=== PATIENT | female | born 1960 | race Caucasian/White ===

== ENCOUNTER 2021-05-08 02:07 | Inpatient (IN) | payer OTHER ==
[2021-05-08] MEDS ORDERED: methylPREDNISolone Sod Succ/PF 125 MG/2 ML VIAL ONE (02:34)
[2021-05-08 03:04] LABS: #Eosinphils 0.1 10x3/uL (0.0-0.5); #Monocytes 0.5 10x3/uL (0.0-1.1); #Neutrophils 4.9 10x3/uL (1.5-8.4); %Basophils 0.2 % (0.0-2.0); %Lymphocytes 16.1 % (18.0-47.0); %Monocytes 7.5 % (0.0-10.0); %Neutrophils 73.9 % (40.0-75.0); Hemoglobin 15.1 g/dL (12.0-15.5); Mean Corpuscular HGB CONC 35.3 g/dL (32.0-36.0); Mean Corpuscular Hemoglobin 30.9 pg (27.0-33.0); Mean Corpuscular Volume 87.5 fl (81.6-98.3); Mean Platelet Volume 11.1 fl (7.4-10.4); Platelet Count 164 10x3/uL (150-450); RBC Distribution Width 12.3 % (11.5-14.5); Red Blood Cell (RBC) Count 4.89 10x6/uL (3.90-5.03); White Blood Cell (WBC) Count 6.7 10x3/uL (3.5-10.5)
[2021-05-08 03:23] LABS: ALT (SGPT) 12 U/L (8-55); AST (SGOT) 18 U/L (5-34); Albumin 4.1 g/dL (3.4-4.8); Alkaline Phosphatase 62 U/L (40-110); Anion Gap 14 mmol/L (10-20); BUN (Urea Nitrogen) 11 mg/dL (9.8-20.1); Bilirubin, Total 0.8 mg/dL (0.2-1.2); Calc. Creatinine Clearance 0 mL/min (70-130); Calcium 9.9 mg/dL (7.8-10.44); Carbon Dioxide 27 mmol/L (23-31); Chloride 103 mmol/L (98-107); Globulin 3.1 g/dL (2.4-3.5); Glucose 111 mg/dL (80-115); Lipase 27 U/L (8-78); Potassium 3.6 mmol/L (3.5-5.1); Protein, Total 7.2 g/dL (5.8-8.1); Sodium 140 mmol/L (136-145)
[2021-05-08 03:33] LABS: Bilirubin Neg (Negative); Blood, Urine 25 (Negative); Glucose, Urine (Dipstick) Normal (Negative); Ketone, Urine 5 mg/dL (Negative); Leukocyte 25 (Negative); Nitrite Negative (Negative); Protein, Urine (Dipstick) Negative (Neg-Trace)
[2021-05-08 03:46] LABS: Clarity Clear (Clear)
[2021-05-08 03:48] LABS: RBC/HPF 0-3 HPF (0-3)
[2021-05-08 03:49] LABS: Bacteria/HPF None Seen HPF (None Seen)
[2021-05-08 03:55] LABS: SARS-CoV-2 NAA Rapid Test Not Detected (NotDetected)
[2021-05-08] MEDS ORDERED: Calcium Carbonate 500 MG ChewTAB PO PRN (06:05)
[2021-05-08] MEDS ORDERED: Ondansetron PF 4 MG/2 ML Vial IVP PRN (06:05)
[2021-05-08] MEDS ORDERED: Mometasone 100 MCG/Formoterol 5 MCG 120 PUFF INHALER INH SCH ×2 (06:30→18:30)
[2021-05-08] MEDS ORDERED: Hydrochlorothiazide 25 MG TAB PO SCH (09:45)
[2021-05-08] MEDS ORDERED: Potassium Chloride 20 MEQ TAB PO SCH (09:45)
[2021-05-08] MEDS ORDERED: Potassium Chloride 20 MEQ TAB ONE (10:03)
[2021-05-08] MEDS ORDERED: Mometasone/Formoterol 60 PUFF AER INH ONE (10:04)
[2021-05-08] MEDS ORDERED: methylPREDNISolone Sod Succ 40 MG VIAL ONE ×2 (10:04)
[2021-05-08] MEDS ORDERED: Enoxaparin Sodium 40 MG/0.4 ML SYRINGE ONE (10:09)
[2021-05-08] MEDS: Enoxaparin Sodium 40 MG/0.4 ML SYRINGE SC SCH (10:36)
[2021-05-08 10:38] LABS: Legionella Urinary Ag Negative (Negative); Strep pneumo Urine Ag NEGATIVE (NEGATIVE)
[2021-05-08] MEDS: methylPREDNISolone Sod Succ/PF 125 MG/2 ML VIAL IVP SCH ×2 (12:29→20:38)
[2021-05-08] MEDS: Guaifenesin DM 100-10/5 ML UDCUP PO PRN (16:22)
[2021-05-08 17:22] VITALS: BMI 25.2
[2021-05-08] MEDS: Montelukast Sodium 10 mg Tablet PO SCH (20:38)
[2021-05-08] MEDS: Mometasone/Formoterol 60 PUFF AER INH SCH (20:43)
[2021-05-08] MEDS: Zolpidem Tartrate 5 MG TAB PO PRN (21:22)
[2021-05-09] MEDS: methylPREDNISolone Sod Succ/PF 125 MG/2 ML VIAL IVP SCH ×5 (00:14→23:42)
[2021-05-09] MEDS: Mometasone/Formoterol 60 PUFF AER INH SCH ×2 (05:39→19:30)
[2021-05-09 06:14] LABS: Anion Gap 13 mmol/L (10-20); BUN (Urea Nitrogen) 9 mg/dL (9.8-20.1); Calc. Creatinine Clearance 67 mL/min (70-130); Calcium 10.5 mg/dL (7.8-10.44); Carbon Dioxide 28 mmol/L (23-31); Chloride 102 mmol/L (98-107); Glucose 156 mg/dL (80-115); Potassium 3.6 mmol/L (3.5-5.1); Sodium 139 mmol/L (136-145)
[2021-05-09] MEDS: Enoxaparin Sodium 40 MG/0.4 ML SYRINGE SC SCH (09:54)
[2021-05-09] MEDS: Hydrochlorothiazide 25 MG TAB PO SCH (09:55)
[2021-05-09 13:33] LABS: ANA Symphony (Qualitative) Negative (Negative); ANA Symphony (Quantitative) Less than 0.1 Ratio (< 0.7 Negative); dsDNA IgG Antibody 2.3 IU/mL (<10 Negative)
[2021-05-09] MEDS ORDERED: Loratadine 10 MG TAB PO SCH (14:00)
[2021-05-09] MEDS: Montelukast Sodium 10 mg Tablet PO SCH (20:14)
[2021-05-09] MEDS: Zolpidem Tartrate 5 MG TAB PO PRN (22:34)
[2021-05-10 06:09] LABS: #Monocytes 0.2 10x3/uL (0.0-1.1); #Neutrophils 12.6 10x3/uL (1.5-8.4); %Basophils 0.1 % (0.0-2.0); %Lymphocytes 4.7 % (18.0-47.0); %Monocytes 1.5 % (0.0-10.0); Hemoglobin 14.5 g/dL (12.0-15.5); Mean Corpuscular HGB CONC 34.5 g/dL (32.0-36.0); Mean Corpuscular Hemoglobin 30.7 pg (27.0-33.0); Mean Corpuscular Volume 88.8 fl (81.6-98.3); Mean Platelet Volume 11.3 fl (7.4-10.4); Platelet Count 169 10x3/uL (150-450); RBC Distribution Width 12.2 % (11.5-14.5); Red Blood Cell (RBC) Count 4.73 10x6/uL (3.90-5.03); White Blood Cell (WBC) Count 13.6 10x3/uL (3.5-10.5)
[2021-05-10 06:13] LABS: Anion Gap 13 mmol/L (10-20); BUN (Urea Nitrogen) 15 mg/dL (9.8-20.1); Calc. Creatinine Clearance 69 mL/min (70-130); Calcium 10.2 mg/dL (7.8-10.44); Carbon Dioxide 28 mmol/L (23-31); Chloride 103 mmol/L (98-107); Glucose 145 mg/dL (80-115); Potassium 3.8 mmol/L (3.5-5.1); Sodium 140 mmol/L (136-145)
[2021-05-10] MEDS: methylPREDNISolone Sod Succ/PF 125 MG/2 ML VIAL IVP SCH ×4 (06:16→18:20)
[2021-05-10] MEDS: Mometasone/Formoterol 60 PUFF AER INH SCH ×2 (09:47→19:48)
[2021-05-10] MEDS: Enoxaparin Sodium 40 MG/0.4 ML SYRINGE SC SCH (09:49)
[2021-05-10] MEDS: Senokot S 8.6-50 MG TAB PO PRN (09:50)
[2021-05-10] MEDS: Hydrochlorothiazide 25 MG TAB PO SCH (09:50)
[2021-05-10] MEDS: Loratadine 10 MG TAB PO SCH (09:51)
[2021-05-10] MEDS ORDERED: Lorazepam 0.5 MG TAB PO PRN (12:53)
[2021-05-10] MEDS: Acetaminophen 325 MG TAB PO PRN (18:44)
[2021-05-10] MEDS: Montelukast Sodium 10 mg Tablet PO SCH (21:21)
[2021-05-11] MEDS: methylPREDNISolone Sod Succ/PF 125 MG/2 ML VIAL IVP SCH ×4 (00:31→16:44)
[2021-05-11 04:56] LABS: Anion Gap 14 mmol/L (10-20); BUN (Urea Nitrogen) 20 mg/dL (9.8-20.1); Calc. Creatinine Clearance 68 mL/min (70-130); Carbon Dioxide 29 mmol/L (23-31); Chloride 103 mmol/L (98-107); Glucose 153 mg/dL (80-115); Potassium 3.9 mmol/L (3.5-5.1); Sodium 142 mmol/L (136-145)
[2021-05-11 05:06] LABS: #Monocytes 0.2 10x3/uL (0.0-1.1); #Neutrophils 10.9 10x3/uL (1.5-8.4); %Basophils 0.2 % (0.0-2.0); Mean Corpuscular HGB CONC 34.1 g/dL (32.0-36.0); Mean Corpuscular Hemoglobin 30.6 pg (27.0-33.0); Mean Corpuscular Volume 89.9 fl (81.6-98.3); Mean Platelet Volume 11.6 fl (7.4-10.4); Platelet Count 164 10x3/uL (150-450); RBC Distribution Width 12.2 % (11.5-14.5); Red Blood Cell (RBC) Count 4.57 10x6/uL (3.90-5.03)
[2021-05-11] MEDS: Mometasone/Formoterol 60 PUFF AER INH SCH ×2 (08:15→19:25)
[2021-05-11] MEDS: Senokot S 8.6-50 MG TAB PO PRN (09:09)
[2021-05-11] MEDS: Enoxaparin Sodium 40 MG/0.4 ML SYRINGE SC SCH (09:09)
[2021-05-11] MEDS: Hydrochlorothiazide 25 MG TAB PO SCH (09:10)
[2021-05-11] MEDS: Loratadine 10 MG TAB PO SCH (09:10)
[2021-05-11 12:11] LABS: Free T4 (Free Thyroxine) 1.1 ng/dL (0.70-1.48)
[2021-05-11] MEDS ORDERED: Loperamide HCl 2 MG CAP PO PRN (18:08)
[2021-05-11] MEDS ORDERED: Polyethylene Glycol 3350 17 GM Packet PO SCH (18:11)
[2021-05-11] MEDS ORDERED: Bisacodyl 10 MG SUPP PR PRN (18:12)
[2021-05-11] MEDS ORDERED: Magnesium Citrate 300 ML BOT PO SCH (18:15)
[2021-05-11] MEDS: Montelukast Sodium 10 mg Tablet PO SCH (20:44)
[2021-05-12] MEDS: methylPREDNISolone Sod Succ/PF 125 MG/2 ML VIAL IVP SCH ×4 (02:00→18:26)
[2021-05-12] MEDS: Mometasone/Formoterol 60 PUFF AER INH SCH ×2 (07:40→19:50)
[2021-05-12 08:31] LABS: #Monocytes 0.5 10x3/uL (0.0-1.1); #Neutrophils 8.2 10x3/uL (1.5-8.4); %Basophils 0.2 % (0.0-2.0); %Lymphocytes 7.5 % (18.0-47.0); %Monocytes 4.7 % (0.0-10.0); Hemoglobin 14.7 g/dL (12.0-15.5); Mean Corpuscular HGB CONC 35.3 g/dL (32.0-36.0); Mean Corpuscular Hemoglobin 30.6 pg (27.0-33.0); Mean Corpuscular Volume 86.9 fl (81.6-98.3); Mean Platelet Volume 11.2 fl (7.4-10.4); Platelet Count 137 10x3/uL (150-450); RBC Distribution Width 12.4 % (11.5-14.5)
[2021-05-12 08:46] LABS: White Blood Cell (WBC) Count 9.5 10x3/uL (3.5-10.5)
[2021-05-12] MEDS: Loratadine 10 MG TAB PO SCH (10:25)
[2021-05-12] MEDS: Guaifenesin DM 100-10/5 ML UDCUP PO PRN ×2 (10:25→16:18)
[2021-05-12] MEDS: Acetaminophen 325 MG TAB PO PRN (10:25)
[2021-05-12] MEDS: Enoxaparin Sodium 40 MG/0.4 ML SYRINGE SC SCH (10:26)
[2021-05-12] MEDS: Hydrochlorothiazide 25 MG TAB PO SCH (10:26)
[2021-05-12] MEDS: Montelukast Sodium 10 mg Tablet PO SCH (20:43)
[2021-05-13] MEDS: methylPREDNISolone Sod Succ/PF 125 MG/2 ML VIAL IVP SCH ×3 (00:05→12:42)
[2021-05-13] MEDS: Mometasone/Formoterol 60 PUFF AER INH SCH (07:25)
[2021-05-13] MEDS: Enoxaparin Sodium 40 MG/0.4 ML SYRINGE SC SCH (10:16)
[2021-05-13] MEDS: Hydrochlorothiazide 25 MG TAB PO SCH (10:17)
[2021-05-13] MEDS: Loratadine 10 MG TAB PO SCH (10:17)
[2021-05-13 13:09] VITALS: TEMP 98.5
[2021-05-13 16:26] VITALS: BP 131/73
== END 2021-05-13 17:23 | disposition home health service (06) | DRG 189 ==
LOC: CSHERS 02:07 → CSHERHOLD 10:13 → CSHTELE 16:47
PROVIDERS: ADMIT Student in an Organized Health Care Education/Training Program; ATTEND Internal Medicine
DX: J96.01 Acute respiratory failure with hypoxia (principal); J45.901 Unspecified asthma with (acute) exacerbation; Z20.822 Contact with and (suspected) exposure to COVID-19; K21.9 Gastro-esophageal reflux disease without esophagitis; J98.4 Other disorders of lung; E03.9 Hypothyroidism, unspecified; Z90.49 Acquired absence of other specified parts of digestive tract; Z88.0 Allergy status to penicillin; I27.20 Pulmonary hypertension, unspecified; Z90.89 Acquired absence of other organs; Z79.899 Other long term (current) drug therapy
CPT/HCPCS: 36415; 71045; 71275; 80048; 80053; 81003; 81015; 83690; 83735; 83880; 84145; 84436; 84439; 84443; 84481; 84484; 85025; 85652; 86038; 86140; 86225; 87449; 87899; 93005; 93010; 93306; 94640; 94667; 94760; 96374; J1650; J1956; J2920; J2930; J7620; U0002

== ENCOUNTER 2021-08-14 15:00 | Outpatient (CLI) | payer OTHER | END 2021-08-14 15:01 | disposition home or self-care (01) | LOC: CSHULT 15:00 | PROVIDERS: ATTEND Otolaryngology Plastic Surgery within the Head & Neck | DX: E05.90 Thyrotoxicosis, unspecified without thyrotoxic crisis or storm (principal); Z98.890 Other specified postprocedural states; E04.2 Nontoxic multinodular goiter | CPT/HCPCS: 76536 ==

== ENCOUNTER → 2021-08-21 | Emergency (ER) | payer OTHER ==
[~2021-08-21] MED LIST: Boostrix 0.5 ML (Tdap) VIAL ONE
== END ==
LOC: CSHERS 17:10
DX: S61.012A Laceration without foreign body of left thumb without damage to nail, initial encounter (principal); K21.9 Gastro-esophageal reflux disease without esophagitis; E03.9 Hypothyroidism, unspecified; J45.909 Unspecified asthma, uncomplicated; D86.9 Sarcoidosis, unspecified; W26.8XXA Contact with other sharp object(s), not elsewhere classified, initial encounter; Z23 Encounter for immunization
CPT/HCPCS: 12001; 90471; 90715

== ENCOUNTER 2022-06-16 13:20 | Outpatient (CLI) | payer OTHER ==
[2022-06-16] MEDS ORDERED: Iopamidol 300 61% 100 ML VIAL FS ONE (14:49)
== END 2022-06-16 13:21 | disposition home or self-care (01) ==
LOC: CSHCT 13:20
PROVIDERS: ATTEND Family Medicine
DX: N28.89 Other specified disorders of kidney and ureter (principal)
CPT/HCPCS: 74178; 82565; Q9967